=== PATIENT | female | born 1955 | race Caucasian/White ===

== ENCOUNTER 2018-12-20 23:26 | Day surgery (SDC) | payer OTHER ==
[~2018-12-20] VITALS: Ht 154.9 cm; Wt 68.0 kg
[2018-12-20] MEDS ORDERED: VITA500T PO (23:39)
[2018-12-20] MEDS ORDERED: CVS1CAP2 PO (23:39)
[2018-12-20] MEDS ORDERED: CALC600T60 PO (23:39)
[2018-12-21] VITALS (9 sets, daily range): BP systolic 105–122; BP diastolic 54–67
[2018-12-21] MEDS ORDERED: CALC600T18 PO (00:04)
[2018-12-21] MEDS ORDERED: CULT10CA4 PO (00:04)
[2018-12-21] MEDS ORDERED: ROCURONIUM BROMIDE 50 MG/5 ML VIAL As Ordered ONE (00:26)
[2018-12-21] MEDS ORDERED: PROPOFOL 200 MG/20 ML VIAL As Ordered ONE (00:26)
[2018-12-21] MEDS ORDERED: LIDOCAINE 2% INJ 100 MG/5 ML SDV (FOR ANES.) As Ordered ONE (00:26)
[2018-12-21] MEDS ORDERED: dexameTHASONE 4 MG/ML 1ML VIAL (J1100) As Ordered ONE (00:27)
[2018-12-21] MEDS ORDERED: KETOROLAC 60 MG/2 ML VIAL (J1885) As Ordered ONE (00:27)
[2018-12-21] MEDS ORDERED: fentaNYL 250 MCG/5 ML INJECTION (J3010) As Ordered ONE (00:27)
[2018-12-21] MEDS ORDERED: SUGAMMADEX SODIUM 500 MG/5 ML VIAL (BRIDION) As Ordered ONE (00:27)
[2018-12-21] MEDS ORDERED: MIDAZOLAM INJ 2 MG/2 ML VIAL (J2250) As Ordered ONE (00:27)
[2018-12-21] MEDS ORDERED: ONDANSETRON 4MG/2ML VIAL (J2405) As Ordered ONE (00:27)
[2018-12-21] MEDS ORDERED: BUPIVACAINE/EPIN 0.25% 30 ML VIAL As Ordered ONE (00:30)
[2018-12-21] MEDS ORDERED: ZOSYN 3.375 GM VIAL (J2543) As Ordered ONE (01:16)
[2018-12-21] MEDS ORDERED: ePHEDrine SULFATE 25 MG/5 ML(5MG/ML) SYRINGE As Ordered ONE (01:22)
[2018-12-21] MEDS ORDERED: PHENYLephrine HCL 500 MCG/5 ML (100MCG/ML) SYRINGE (J2370) As Ordered ONE (01:22)
[2018-12-21] MEDS ORDERED: D5W/LR 1,000 ML IV SCH (01:50)
[2018-12-21] MEDS ORDERED: NORCO, ANEXSIA 5/325MG TABLET (HYDROcodone/ACETAMINOPHEN) PO PRN (02:00)
[2018-12-21] MEDS ORDERED: MORPHINE 4 MG/ML 1ML VIAL/SYRINGE (J2270) IV PRN (02:00)
[2018-12-21] MEDS ORDERED: oxyCODONE 5MG TAB PO PRN (02:45)
[2018-12-21] MEDS ORDERED: fentaNYL 100 MCG/2 ML INJECTION (J3010) IV PRN (02:45)
[2018-12-21] MEDS ORDERED: LR 1,000 ML IV SCH (02:45)
[2018-12-21] MEDS ORDERED: ONDANSETRON 4MG/2ML VIAL (J2405) IV PRN (02:45)
[2018-12-21] MEDS: PIPERACILLIN/TAZOBACTAM SOD 3.375 GM in D5W MINI-BAG PLUS 50 ML IV SCH ×2 (06:20→12:36)
[2018-12-21] MEDS: KETOROLAC 30 MG/ML VIAL (J1885) IV SCH ×2 (08:19→14:29)
--- NOTE | 2019-01-04 10:26 | RO ---
DATE OF PROCEDURE: 12/21/2018 PREOPERATIVE DIAGNOSIS: Acute appendicitis. POSTOPERATIVE DIAGNOSIS: Acute appendicitis. PROCEDURE: Laparoscopic appendectomy. SURGEON: Joe Aranda Jr., MD POSTULANT: ANESTHESIA: General endotracheal anesthesia. ESTIMATED BLOOD LOSS (EBL): Minimal. FLUIDS: Crystalloid. DESCRIPTION OF PROCEDURE: Brief procedure summary: The patient was brought to the operating room and was given general anesthesia. After adequate anesthesia and preoperative antibiotics were given, the patient was prepped and draped in the usual sterile fashion. Next, a supraumbilical incision was made with skin knife. Blunt dissection was carried down to fascia. Fascia was entered with a Veress needle, insufflated to 15 mm of pressure, and a dilating 12-mm trocar was placed at this time. Under direct visualization, a suprapubic and left lower quadrant 5-mm trocar was placed, and the patient was placed in Trendelenburg left side down position. The appendix was mobilized off the pelvic sidewall and off the small bowel with harmonic scalpel and some blunt dissection, and eventually this was mobilized quite nicely with the harmonic scalpel, and then the mesentery was taken with the harmonic scalpel all the way to the base of the appendix. The base of the appendix was transected with a JENELLE stapler, and the appendix was placed in an Endo Catch bag and brought out through the umbilicus. The lower quadrant was copiously irrigated until clear, and all trocars were removed under direct visualization. 0 Vicryl was used to close the fascia at the umbilicus, and all incisions were closed with 4-0 Vicryl. Steri-Strips and a dry sterile dressing were applied. The patient was awakened, extubated, brought to recovery room awake, alert, and hemodynamically stable. Sponge and needle counts correct times two.
== END 2018-12-21 16:30 | disposition home or self-care (01) ==
LOC: M ED 23:26 → M SDC 23:27 → M PED 12-21 02:45 → M SDC 12-21 02:45 → M PED 12-21 03:39 → M SDC 12-21 16:30
PROVIDERS: ATTEND Surgery
DX: K35.890 Other acute appendicitis without perforation or gangrene (principal)
CPT/HCPCS: 44970; 88302; 96361; 96374; 96375; 96376; 99284; J1100; J1885; J2250; J2370; J2405; J2543; J3010